=== PATIENT | female | born 2000 | race Hispanic/Latino ===

== ENCOUNTER 2019-08-21 23:27 | Emergency (ER) | payer OTHER, SELFPAY ==
[2019-08-22] MEDS ORDERED: DIPHENHYDRAMINE HCL 25 MG CAPSULE ONE (00:12)
== END 2019-08-22 02:56 | disposition home or self-care (01) ==
LOC: EDH 23:27
DX: S93.401A Sprain of unspecified ligament of right ankle, initial encounter (principal); T78.49XA Other allergy, initial encounter; J45.909 Unspecified asthma, uncomplicated; W57.XXXA Bitten or stung by nonvenomous insect and other nonvenomous arthropods, initial encounter; Y93.89 Activity, other specified; Y92.89 Other specified places as the place of occurrence of the external cause; Y99.8 Other external cause status
CPT/HCPCS: 73610; 81025; 99285; Q0163

== ENCOUNTER 2021-03-31 23:47 | Emergency (ER) | payer OTHER ==
[~2021-03-31] VITALS: Ht 162.6 cm; Wt 70.8 kg
[2021-03-31 23:53] VITALS: BP 135/88
[2021-04-01 01:39] LABS: APPEARANCE,URINE Clear (CLEAR); BILIRUBIN,URINE Negative (NEGATIVE); COLOR,URINE Yellow (YELLOW); GLUCOSE, URINE (UA) Negative (NEGATIVE); KETONES,URINE Negative (NEGATIVE); LEUKOCYTE ESTERASE ,URINE Trace (NEGATIVE); NITRATE,URINE Negative (NEGATIVE); OCCULT BLOOD,URINE Negative (NEGATIVE); PROTEIN,URINE Negative (NEGATIVE)
[2021-04-01 01:55] LABS: BACTERIA,URINE Few /HPF (None Seen)
[2021-04-01] MEDS ORDERED: ONDANSETRON 4MG INJ IVP ONE (03:00)
[2021-04-01] MEDS ORDERED: SODIUM CHLORIDE 0.9% 1000ML 1,000 ML IV ONE ×2 (03:00)
[2021-04-01] MEDS ORDERED: KETOROLAC 30MG VIAL (30MG/ML) IV ONE (03:00)
[2021-04-01] MEDS ORDERED: ONDANSETRON 4MG INJ ONE (04:04)
[2021-04-01] MEDS ORDERED: KETOROLAC 30MG VIAL (30MG/ML) ONE (04:05)
[2021-04-01 04:37] LABS: BASOPHILS % (AUTO) 0.3 % (0.0-5.0); EOSINOPHILS % (AUTO) 1.2 % (0.0-8.0); HEMATOCRIT 45.2 % (36-48); LYMPHOCYTES % (AUTO) 39.2 % (21.0-51.0); MEAN CORPUSCULAR HEMOGLOBIN 30.6 pg (27.0-33.0); MEAN CORPUSCULAR VOLUME 92.8 fL (79-99); MONOCYTES % (AUTO) 4.5 % (3.0-13.0); NEUTROPHILS % (AUTO) 54.7 % (40.0-77.0); PLATELET COUNT (AUTO) 329 K/uL (130-400); RED BLOOD CELL COUNT(AUTO) 4.87 MIL/uL (4.00-5.50); RED CELL DISTRIBUTION WIDTH 13.2 % (11.0-15.5); WHITE BLOOD COUNT (AUTO) 6.7 K/uL (4.8-10.8)
[2021-04-01 04:44] LABS: CREATININE 0.7 mg/dL (0.5-1.5); POTASSIUM 3.8 mmol/L (3.5-5.1)
[2021-04-01 04:48] LABS: ALBUMIN 3.9 g/dL (3.5-5.0); BILIRUBIN,TOTAL 0.6 mg/dL (0.2-1.0); TOTAL PROTEIN, SERUM 8.6 g/dL (6.0-8.3)
[2021-04-01 05:00] VITALS: BP 132/78
[2021-04-01] MEDS ORDERED: ONDA4TAB10 PO (05:07)
[2021-04-01] MEDS ORDERED: METO-296 PO (05:07)
[2021-04-01] MEDS ORDERED: MELO7.5T12 PO (05:07)
== END 2021-04-01 05:34 | disposition home or self-care (01) ==
LOC: EDH 23:47
DX: E86.0 Dehydration (principal); R11.2 Nausea with vomiting, unspecified; Z20.822 Contact with and (suspected) exposure to COVID-19; J45.909 Unspecified asthma, uncomplicated; Z79.899 Other long term (current) drug therapy
CPT/HCPCS: 36415; 80053; 81001; 81025; 85025; 87635; 87804 ×2; 96361; 96374; 96375; 99284; C9803; J1885; J2405